=== PATIENT | female | born 1950 | race Caucasian/White ===

== ENCOUNTER → 2018-08-06 | Outpatient (CLI) | payer MEDICARE ==
[~2018-08-06] MED LIST: AFRIN NASAL SPRAY NS; ALBU18HF PO; ALPR0.5T6 PO; AMLO10TA8 PO; ASPI-496 PO; ASPI325T17 PO; CHOL10002 PO; FLUT16SP PO; FURO40TA6 PO; LEVO75TA5 PO; LOSA100T14 PO; METO25TA91 PO; OXYC-302 PO; POTA20LI PO
== END | disposition home or self-care (01) ==
LOC: CFH 13:12
PROVIDERS: ATTEND Internal Medicine Cardiovascular Disease
DX: I08.0 Rheumatic disorders of both mitral and aortic valves (principal); I11.9 Hypertensive heart disease without heart failure; I48.91 Unspecified atrial fibrillation; E78.5 Hyperlipidemia, unspecified; Z87.891 Personal history of nicotine dependence; Z85.89 Personal history of malignant neoplasm of other organs and systems
CPT/HCPCS: 93306

== ENCOUNTER 2018-08-30 11:08 | Outpatient (CLI) | payer MEDICARE ==
[2018-08-30] MEDS ORDERED: ASPI-650 PO (12:06)
[2018-08-30] MEDS ORDERED: UMEC1DIS INH (12:06)
== END 2018-08-30 23:59 | disposition home or self-care (01) ==
LOC: STAR 11:08
DX: Z02.9 Encounter for administrative examinations, unspecified (principal)

== ENCOUNTER 2018-09-06 10:21 | Day surgery (SDC) | payer MEDICARE ==
[~2018-09-06] VITALS: Ht 158.8 cm; Wt 97.5 kg
[~2018-09-06 10:21] MED LIST changes: +ASPI-650 PO; +UMEC1DIS INH
[2018-09-06] MEDS ORDERED: LACTATED RINGERS 1,000 ML IV SCH (11:03)
[2018-09-06 11:29] VITALS: BP 117/75
[2018-09-06] MEDS ORDERED: METOPROLOL 1 MG/ML, 5ML IV PRN (12:00)
[2018-09-06] MEDS ORDERED: FENTANYL PF 100 MCG/2ML IV PRN (12:00)
[2018-09-06] MEDS ORDERED: LABETALOL 5MG/ML, 20ML IV PRN (12:00)
[2018-09-06] MEDS ORDERED: ALBUTEROL/IPRATROPIUM 2.5MG/0.5MG, 3 ML NPPB PRN (12:00)
[2018-09-06] MEDS ORDERED: hydrALAzine 20 MG/ML, 1ML IV PRN (12:00)
[2018-09-06] MEDS ORDERED: ONDANSETRON 2MG/ML, 2ML IV PRN (12:00)
[2018-09-06] MEDS ORDERED: PROPOFOL 10 MG/ML, 20ML ONE (12:36)
[2018-09-06] MEDS ORDERED: PROPOFOL 10 MG/ML, 50ML ONE (12:36)
== END 2018-09-06 15:00 | disposition home or self-care (01) ==
LOC: OUT 10:21
DX: K63.5 Polyp of colon (principal); K22.2 Esophageal obstruction; K57.30 Diverticulosis of large intestine without perforation or abscess without bleeding; K63.89 Other specified diseases of intestine; K29.70 Gastritis, unspecified, without bleeding; E03.9 Hypothyroidism, unspecified; I48.91 Unspecified atrial fibrillation; I12.9 Hypertensive chronic kidney disease with stage 1 through stage 4 chronic kidney disease, or unspecified chronic kidney disease; N18.3 Chronic kidney disease, stage 3 (moderate); J44.9 Chronic obstructive pulmonary disease, unspecified; Z98.0 Intestinal bypass and anastomosis status; Z88.8 Allergy status to other drugs, medicaments and biological substances; Z88.1 Allergy status to other antibiotic agents; Z91.040 Latex allergy status; Z87.891 Personal history of nicotine dependence
CPT/HCPCS: 43239; 43248; 45385; 88305; J2704; J7120